=== PATIENT | male | born 1940 | race Caucasian/White ===

== ENCOUNTER → 2018-10-01 | Outpatient (CLI) | payer OTHER ==
[~2018-10-01] MED LIST: ASPI325 PO; CLOP75 PO; IBUP200 PO; OMEP20ER PO; SIMV10 PO; [UNRECOGNIZED DRUG - OTHER] PO
[2018-10-01 19:25] LABS: Bilirubin, Urine Neg (Neg); Blood, Urine Neg (Neg); Glucose Qualitative, Urine Neg (Neg); Ketones, Urine Neg (Neg); Leukocyte Esterase, Urine Neg (Neg); Nitrite, Urine Neg (Neg); Protein, Urine Neg (Neg); Urobilinogen, Urine NORM (Normal); pH, Urine 6.5 (5.0-8.0)
[2018-10-01 19:56] LABS: Appearance, Urine Clear (Clear); Color, Urine Yellow (P-Yellow)
== END ==
LOC: LAB SHORT 18:22 → LAB 18:22
PROVIDERS: Internal Medicine
DX: I12.9 Hypertensive chronic kidney disease with stage 1 through stage 4 chronic kidney disease, or unspecified chronic kidney disease (principal); N18.3 Chronic kidney disease, stage 3 (moderate)
CPT/HCPCS: 81003

== ENCOUNTER 2023-04-21 10:22 | Observation (INO) | payer OTHER ==
[2023-04-21] VITALS (9 sets, daily range): BP systolic 112–134; BP diastolic 74–98
[~2023-04-21] VITALS: Ht 177.8 cm; Wt 64.1 kg
[2023-04-21 11:59] LABS: Mean Corpuscular HGB 31.1 pg (26.0-34.0); Mean Corpuscular HGB Conc 34.1 g/dL (31.5-36.5); Mean Corpuscular Volume 91 fL (80-100); Mean Platelet Volume 12.2 fL (9.1-12.4); Platelet Count 238 K/mm3 (150-400); RDW Coefficient Variation 13.6 % (11.7-14.2); RDW Standard Deviation 45.9 fL (35.1-46.3)
[2023-04-21 12:03] LABS: White Blood Cell Count 12.48 K/mm3 (4.00-11.30)
[2023-04-21 12:10] LABS: Albumin, Blood 2.8 g/dL (3.4-5.0); Albumin/Globulin Ratio 0.9 (0.8-1.8); Bilirubin, Total 0.3 mg/dL (0.1-1.0); Bun/Creatinine Ratio 28.8 (12.0-20.0); Creatinine, Blood 1.04 mg/dL (0.60-1.20); Potassium, Blood 4.5 mmol/L (3.5-5.5); Total Protein, Blood 5.8 g/dL (6.4-8.2)
[2023-04-21 12:43] LABS: BASOPHILS PERCENT MAN 0 % (0-2); EOSINOPHILS PERCENT MAN 0 % (0-6); LYMPHOCYTES ABSOLUTE MAN 0.87 K/mm3 (0.84-5.20); LYMPHOCYTES PERCENT MAN 7 % (21-46); MONOCYTES ABSOLUTE MAN 1.49 K/mm3 (0.16-1.47); MONOCYTES PERCENT MAN 12 % (4-13); SEG NEUTROPHILS PERCENT MAN 81 % (41-73); TOTAL CELLS COUNTED 100
[2023-04-21] MEDS ORDERED: AZIT500 PO (20:54)
[2023-04-21] MEDS ORDERED: PRED20 PO (20:54)
[2023-04-21] MEDS ORDERED: TAMSULOSIN HCL0.4 M1 PO (20:55)
[2023-04-21] MEDS ORDERED: Simvastatin20 MG PO (20:57)
[2023-04-21] MEDS ORDERED: FINA5 PO (20:58)
[2023-04-21] MEDS ORDERED: Prinivil10 MG PO (21:00)
--- NOTE | 2023-04-21 22:12 | NUR ---
ASSUMED PT CARE FORM RN IN ED. PT ABLE TO STAND AND PIVOT TO BED WITH WEAK GAIT. DENIES DIZZIENESS WHEN UP BUT REPORTS FEELING WEAK. A&OX4 BUT SEVERELY [place]. DENIES ANY FEELINGS OF CHEST PAIN OR SOB. DILT GTT INFUSING AT 5 WHEN TRANSFERED WITH HR IN LOW 100'S. HR DECREASED TO 70-80'S. DILT GTT STOPPED AT 2039. WILL MONTOR HR. BP STABLE, SEE RECORDED VITAL SIGNS. O2 SATS > 92% ON RA. LUNG SOUNDS DEMINISHED IN BASES. LOOSE, RATTLING COUGH PRESENT. PT REPORTS HAVING CHRONIC COUGH, "I HAVE A HARD TIME GETTING ANYTHING UP". REPORTS 71 YEAR HX OF SMOKING, NOW ONLY 0.5 PACK/DAY. DISCUSSED IGNITION RISK WITH PT, STATES UNDERSTANDING. DECLINES NICOTINE PATCH AT THIS TIME. REVIEWED HOME MEDICATION LIST WITH JOS OVER THE PHONE WITH PT'S PERMISSION. LEFT RESTING IN BED. DENIES NEEDS AT THIS TIME. ORIENTED TO CALL LIGHT. BED ALARM ON.
[2023-04-22] VITALS (7 sets, daily range): BP systolic 96–140; BP diastolic 58–92
[2023-04-22 04:01] LABS: Hematocrit 41.4 % (37.0-53.0); Hemoglobin 14.5 g/dL (13.5-17.5); Mean Corpuscular HGB 31.4 pg (26.0-34.0); Mean Corpuscular Volume 90 fL (80-100); Mean Platelet Volume 11.9 fL (9.1-12.4); Platelet Count 248 K/mm3 (150-400); RDW Coefficient Variation 13.6 % (11.7-14.2); RDW Standard Deviation 44.9 fL (35.1-46.3); Red Blood Cell Count 4.62 M/mm3 (4.30-5.90); White Blood Cell Count 13.06 K/mm3 (4.00-11.30)
[2023-04-22 04:31] LABS: Bun/Creatinine Ratio 31.1 (12.0-20.0); Calcium, Blood 8.8 mg/dL (8.5-10.1); Creatinine, Blood 0.84 mg/dL (0.60-1.20); Potassium, Blood 4.4 mmol/L (3.5-5.5); Thyroid Stimulating Hormone 1.32 uIU/mL (0.360-4.800)
--- NOTE | 2023-04-22 06:41 | NUR ---
SHIFT SUMMARY: PT HR REMAINED IN 90'S TO LOW 100'S MOST OF NIGHT WITH DILT GTT OFF. BP REMAINED STABLE. HR INCREASING TO 120'S AND SUSTAINING. PT ASYMPTOMATIC. DILT GTT RESTARTED AT 5, HR NOW IN 110'S. PT RETAINING URINE, STANDING AT BEDSIDE AND USING BSC BUT UNABLE TO VOD. BLADDER SCAN > 400 ML. PT REPORTS CHRONIC DIFFICUTLY VOIDING BUT IS ABLE TO ASSIST VOIDING BY AMBULATING. PT UNABLE TO TOLERATE ANY DISTANCE AT THIS TIME. 1&O CATH X 1, CLEAR, TEA COLORED URINE RECEVED BACK. WILL CONTINUE TO MONITOR. CALL LIGHT IN REACH. BED IN LOW POSITION WITH ALARM ON.
--- NOTE | 2023-04-22 08:24 | NUR ---
AM NOTE: PATIENT ALERT AND ORIENTED. HARD OF HEARING. 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 NUMBNESS/TINGLING TO LEFT HAND, PREVIOUS STROKE, PATIENT REPORTS IN 2010. OVERALL WEAK. ONE PERSON SBA. IRRITABLE THIS AM STATING "THE DOCTORS HAVE NOT FIXED ANYTHING, I AM THE SAME YESTERDAY, I AM GOING HOME TODAY NO MATTER WHAT". THIS RN EDUCATED ABOUT AFIB AND CARDIZEM GTT. PATIENT CONTINUES TO STATE "NO MATTER WHAT I AM GOING HOME". PATIENT CALLED PAWEL THIS AM, PAWEL TO BE COMING IN. ON ROOM AIR, DENIES SOB. EVEN AND UNLABORED RESPIRATIONS. PATIENT STATES HE WAS TAKING A "Z-PACK, AND PREDNISONE" AT HOME AND THAT HIS PAWEL IS BRINGING THIS IN. TELE SHOWING AFIB WITH HR 100-120'S. CARDIZEM GTT ON AT 5. BP STABLE. PPP. DENIES CHEST PAIN/PRESSURE/PALPITATIONS. NONSYMPTOMATIC WITH AFIB. DENIES ABDOMINAL PAIN/NAUSEA. BOWEL TONES PRESENT. EATING WNL. PATIENT REPORTS RETENTION AT HOME, MONITORING URINE OUTPUT. ATTENDS IN PLACE. THIS RN EDUCATED BUSH HOG OPERATOR LIGHT. PATIENT VERBALIZES HE WILL CALL FOR ASSISTANCE IN GETTING OUT OF BED. BED IN LOW LOCKED POSITION. PATIENT DENIES NEEDS AT THIS TIME.
--- NOTE | 2023-04-22 09:50 | NUR ---
CONVERSION TO SINUS RHYTHM WITH HR 70'S AT 0925, CONFIRMED WITH RADIOLOGY TRANSCRIPTIONIST. DR. MARTINEZ IN ROOM AT TIME AND AWARE. PLAN FOR ECHO TO BE READ AND POSSIBLE DISCHARGE. BLOOD THINNERS AND METOPROLOL DISCUSSED. AT BEDSIDE FOR PROVIDER VISIT.
[2023-04-22] MEDS ORDERED: METO25 PO (11:40)
[2023-04-22] MEDS ORDERED: ELIQUIS5 M2 PO (11:44)
--- NOTE | 2023-04-22 13:42 | NUR ---
DISCHARGE: NO ACUTE CHANGES, PATIENT REMAINS IN SR WITH HR 60-70'S. BP STABLE. ECHO COMPLETED AND READ. DISCHARGE INSTRUCTIONS REVIEWED WITH PATIENT AND . COPY PROVIDED FOR DAUGHTER JAREN. THIS RN DISCUSSED FOLLOW UP APPOINTMENT AND STOPPING PLAVIX AND LISINOPRIL AND STARTING METOPROLOL AND ELIQUIS. THIS RN DISCUSSED VITAL SIGNS WITH TAKING METORPOLOL. MEDICATIONS FAXED TO [facility]. IV REMOVED WNL. PATIENT LEFT UNIT VIA WHEELCHAIR WITH ALL PERSONAL BELONGINGS.
== END 2023-04-22 12:00 | disposition home or self-care (01) ==
LOC: ER 10:22 → ERHOLD 10:23 → PCU 10:23
PROVIDERS: Student in an Organized Health Care Education/Training Program; ADMIT Internal Medicine
DX: I48.91 Unspecified atrial fibrillation (principal); N40.0 Benign prostatic hyperplasia without lower urinary tract symptoms; J44.9 Chronic obstructive pulmonary disease, unspecified; U07.1 COVID-19; E78.5 Hyperlipidemia, unspecified
CPT/HCPCS: 36415; 51701; 71045; 80048; 80053; 83735; 83880; 84443; 84484; 85025; 85027; 93005; 93010; 93306; 96361; 96365; 96366; 96368; 96372; 96375; 99285-25; A9270; G0378; J1650; J2765; J3475; J7030

== ENCOUNTER → 2023-07-04 | Outpatient (CLI) | payer OTHER ==
[~2023-07-04] MED LIST changes: +AZIT500 PO; +ELIQUIS5 M2 PO; +FINA5 PO; +METO25 PO; +PRED20 PO; +Prinivil10 MG PO; +Simvastatin20 MG PO; +TAMSULOSIN HCL0.4 M1 PO
[2023-07-04 17:29] LABS: International Normalized Ratio 1.09; Prothrombin Time Results 11.4 Sec (9.7-11.5)
== END ==
LOC: LAB SHORT 16:31 → LAB 16:31
PROVIDERS: Nurse Practitioner Family
DX: I48.91 Unspecified atrial fibrillation (principal)
CPT/HCPCS: 85610

== ENCOUNTER 2025-03-13 17:57 | Emergency (ER) | payer OTHER ==
[~2025-03-13] VITALS: Ht 175.3 cm; Wt 72.6 kg
[~2025-03-13 17:57] MED LIST changes: +DOCU100 PO; +LISI20 PO; +MIRALAX17 GM PO; +OXYC5 PO; +WARF1
[2025-03-13 18:21] LABS: BASOPHILS ABSOLUTE AUTO 0.05 K/mm3 (0.00-0.23); BASOPHILS PERCENT AUTO 1 % (0-2); EOSINOPHILS ABSOLUTE AUTO 0.14 K/mm3 (0.00-0.68); EOSINOPHILS PERCENT AUTO 1 % (0-6); Hematocrit 39.8 % (37.0-53.0); Hemoglobin 13.7 g/dL (13.5-17.5); IMMATURE GRAN ABSOLUTE AUTO 0.02 K/mm3 (0.00-0.10); IMMATURE GRAN PERCENT AUTO 0 % (0-1); LYMPHOCYTES ABSOLUTE AUTO 2.34 K/mm3 (0.84-5.20); LYMPHOCYTES PERCENT AUTO 24 % (21-46); MONOCYTES ABSOLUTE AUTO 1.01 K/mm3 (0.16-1.47); MONOCYTES PERCENT AUTO 10 % (4-13); Mean Corpuscular HGB Conc 34.4 g/dL (31.5-36.5); Mean Corpuscular Volume 89 fL (80-100); NEUTROPHILS ABSOLUTE AUTO 6.29 K/mm3 (1.96-9.15); NEUTROPHILS PERCENT AUTO 64 % (41-73); NRBC ABSOLUTE 0.00 K/mm3 (0.00-0.02); NRBC Auto 0.0 /100 WBC (0.0-0.2); Platelet Count 216 K/mm3 (150-400); RDW Coefficient Variation 14.7 % (11.7-14.2); RDW Standard Deviation 48.3 fL (35.1-46.3)
[2025-03-13 18:35] LABS: Alanine Aminotransfer (ALT/SGP 28.0 U/L (12-78); Albumin, Blood 3.5 g/dL (3.4-5.0); Albumin/Globulin Ratio 1.1 (0.8-1.8); Anion Gap 9.0 mmol/L (3-11); Aspartate Aminotrans (AST/SGOT 37.0 U/L (12-37); Bilirubin, Total 0.4 mg/dL (0.1-1.0); Blood Urea Nitrogen 21.0 mg/dL (8-24); CO2, Blood 25.0 mmol/L (21-32); Calcium, Blood 9.4 mg/dL (8.5-10.1); Chloride, Blood 109.0 mmol/L (98-108); Creatinine, Blood 0.88 mg/dL (0.60-1.20); Globulin, Blood 3.2 g/dL (2.2-4.0); Glucose, Blood 94.0 mg/dL (70-99); Potassium, Blood 4.6 mmol/L (3.5-5.5); Sodium, Blood 138.0 mmol/L (136-145); Total Protein, Blood 6.7 g/dL (6.4-8.2)
[2025-03-13 23:32] LABS: Influenza A, PCR NEGATIVE (NEGATIVE); Influenza B, PCR NEGATIVE (NEGATIVE); Resp Syncytial Virus, PCR NEGATIVE (NEGATIVE); SARS-Cov-2 (COVID-19) PCR, MMC NEGATIVE (NEGATIVE)
[2025-03-13] MEDS ORDERED: NS 500 ML IV SCH (23:45)
[2025-03-14] MEDS ORDERED: Etomidate 2MG / ML 10ML Vial IV ONE (00:40)
[2025-03-14 08:05] VITALS: BP 129/100
[2025-03-14 09:38] LABS: Source, Urine Clean Catch
[2025-03-14 09:44] LABS: Bilirubin, Urine Neg (Neg); Color, Urine Yellow (P-Yellow); Glucose Qualitative, Urine Neg (Neg); Ketones, Urine Neg (Neg); Leukocyte Esterase, Urine Neg (Neg); Protein, Urine Neg (Neg); Specific Gravity, Urine 1.015 (1.003-1.022); Urobilinogen, Urine NORM (Normal)
== END 2025-03-14 17:14 | disposition home or self-care (01) ==
LOC: ER 17:57
PROVIDERS: Emergency Medicine
DX: R53.1 Weakness (principal); R53.81 Other malaise; E78.5 Hyperlipidemia, unspecified; Z79.82 Long term (current) use of aspirin; F17.200 Nicotine dependence, unspecified, uncomplicated
CPT/HCPCS: 70450; 71045; 80053; 81003; 83880; 85025; 87637; 93005; 93010; 97161; 97530; 99285-25; J7030

== ENCOUNTER 2025-05-02 22:08 | Inpatient (IN) | payer OTHER ==
[~2025-05-02] VITALS: Ht 177.8 cm; Wt 80.2 kg
[2025-05-02] MEDS ORDERED: FentaNYL Citrate 50 MCG/ML 2 ML Injection IV PRN (22:40)
[2025-05-02] MEDS ORDERED: FentaNYL Citrate 50 MCG/ML 2 ML Injection IV ONE (23:40)
[2025-05-02] MEDS ORDERED: Ketamine HCL 10 MG in NS 100 ML IV ONE (23:40)
[2025-05-03] MEDS ORDERED: NS 1,000 ML IV SCH (01:45)
[2025-05-03 01:48] LABS: BASOPHILS ABSOLUTE AUTO 0.04 K/mm3 (0.00-0.23); BASOPHILS PERCENT AUTO 0 % (0-2); EOSINOPHILS ABSOLUTE AUTO 0.17 K/mm3 (0.00-0.68); EOSINOPHILS PERCENT AUTO 2 % (0-6); Hematocrit 37.9 % (37.0-53.0); Hemoglobin 12.2 g/dL (13.5-17.5); IMMATURE GRAN ABSOLUTE AUTO 0.12 K/mm3 (0.00-0.10); IMMATURE GRAN PERCENT AUTO 1 % (0-1); LYMPHOCYTES ABSOLUTE AUTO 2.02 K/mm3 (0.84-5.20); LYMPHOCYTES PERCENT AUTO 21 % (21-46); MONOCYTES ABSOLUTE AUTO 0.77 K/mm3 (0.16-1.47); MONOCYTES PERCENT AUTO 8 % (4-13); Mean Corpuscular HGB Conc 32.2 g/dL (31.5-36.5); Mean Corpuscular Volume 95 fL (80-100); NEUTROPHILS ABSOLUTE AUTO 6.43 K/mm3 (1.96-9.15); NEUTROPHILS PERCENT AUTO 67 % (41-73); NRBC ABSOLUTE 0.00 K/mm3 (0.00-0.02); NRBC Auto 0.0 /100 WBC (0.0-0.2); Platelet Count 219 K/mm3 (150-400); RDW Coefficient Variation 14.5 % (11.7-14.2); RDW Standard Deviation 50.7 fL (35.1-46.3)
[2025-05-03 01:52] LABS: Alanine Aminotransfer (ALT/SGP 25.0 U/L (12-78); Albumin, Blood 3.0 g/dL (3.4-5.0); Albumin/Globulin Ratio 1.0 (0.8-1.8); Anion Gap 8.0 mmol/L (3-11); Aspartate Aminotrans (AST/SGOT 22.0 U/L (12-37); Bilirubin, Total 0.4 mg/dL (0.1-1.0); Blood Urea Nitrogen 23.0 mg/dL (8-24); CO2, Blood 27.0 mmol/L (21-32); Calcium, Blood 8.9 mg/dL (8.5-10.1); Chloride, Blood 108.0 mmol/L (98-108); Creatinine, Blood 0.86 mg/dL (0.60-1.20); Globulin, Blood 2.9 g/dL (2.2-4.0); Glucose, Blood 113.0 mg/dL (70-99); Potassium, Blood 4.2 mmol/L (3.5-5.5); Sodium, Blood 139.0 mmol/L (136-145); Total Protein, Blood 5.9 g/dL (6.4-8.2)
[2025-05-03] MEDS ORDERED: Magnesium Hydroxide Conc 10 ML UDC PO PRN (02:00)
[2025-05-03 02:54] LABS: Prothrombin Time Results 65.8 Sec (9.7-11.5)
[2025-05-03 04:49] VITALS: BP 160/84
[2025-05-03] MEDS ORDERED: NS 250 ML IV PRN (05:55)
[2025-05-03] MEDS ORDERED: Ipratropium/Albuterol SulF 2.5-0.5MG/3 ML Amp INH PRN (06:10)
[2025-05-03 06:17] VITALS: BP 160/91
[2025-05-03 06:30] VITALS: BP 131/74
[2025-05-03 07:12] VITALS: BP 132/76
[2025-05-03] MEDS ORDERED: Polyethylene Glycol 3350 17 gm PO PRN (07:40)
[2025-05-03 09:47] LABS: Prothrombin Time Results 20.0 Sec (9.7-11.5)
[2025-05-03] MEDS ORDERED: HYDROmorphone HCl/Pf 1MG SYR IV PRN (12:20)
[2025-05-03 16:14] VITALS: BP 121/89
--- NOTE | 2025-05-03 16:58 | NUR ---
SHIFT SUMMARY PT RESTING QUIETLY AT START OF SHIFT. WOKE EASILY FOR CARE. PLEASANT AND CO-OP. PT NPO AT START OF SHIFT. DR EDGE AND DR BURTON BOTH IN TO SEE PT TO DISCUSS PLAN OF CARE. PT GIVEN VIT K AND 2 UNITS OF FFP ON NOC SHIFT FOR INR 6.0 UPON ADMISSION. NEXT INR TAKEN AT 0900; DR BURTON THEN NOTIFIED OF RESULTS. PT TO HAVE SX TOMORROW, DIET ORDERED AND MEDS GIVEN PER EMAR. IN EARLY TO SEE PT, JUST AFTER DR BURTON LEFT. MED REC UPDATED PER ORDERS WHEN BROUGHT IN HOME MED LIST AND MEDICATION BOTTLES. REPORTED PT TAKING COUMADIN FOR AFIB, PER PT'S PCP. PER PT AND , HOME DOSE OF COUMADIN IS 6 MG - AND 9 MG MON & MONDAY. BLE SWELLING, WITH R FOOT MORE SWOLLEN; DR BURTON REQUESTED SCD'S TO BOTH CALF'S. LUNGS T/O COARSE WITH SCATTERED EXP WHEEZES; PER PT AND THIS IS PT'S BASELINE. DR EDGE ORDERED FLUTTER VALVE AND INS; GIVEN PER ORDER. PT REPORTS USING THEM AT HOME. PT'S DAUGHTER IN TO VISIT AND CK ON PT THIS AM WELL. FAMILY THEN REPOSITIONED PT, CAUSING PAIN TO R HIP FX. PT THEN MEDICATED PER EMAR WITH OXYCODONE. DAUGHTER WANTING PT TO HAVE IV PAIN MEDICATION WELL; NO IV MED AVAILABLE AT THAT TIME. DR EDGE NOTIFIED AND NEW ORDERS PLACED. PT HAS BEEN DOING BETTER THIS AFTERNOON, RECOVERING FROM FAMILY REPOSITONING. PT REQUESTED BEDPAN THIS AM FOR BM; VERY LRG FORMED STOOL. PT REPORTS TROUBLE WITH CONSTIPATION. BOWEL CARE GIVEN PER EMAR. MALE PUREWICK IN PLACE FOR INCONTINECE; PT TOLERATING WELL. PT REPORTED CHOKING REFLEX HX AND REQUESTING SOFT BITE SIZE DIET; ORDERED PER REQUEST. PT SITTING UP EATING DINNER AT THIS TIME. PT TO BE NPO AT MN FOR SX IN AM. AT BS. DENIES FURTHER NEEDS AT THIS TIME. CALL LT IN REACH.
[2025-05-03 20:05] VITALS: BP 114/53
[2025-05-03] MEDS ORDERED: Docusate Sodium/Senna 1 Tab PO SCH (21:00)
[2025-05-03] MEDS ORDERED: CeFAZolin Sodium 2,000 MG in NS 100 ML IV SCH (22:05)
[2025-05-03 22:40] LABS: Prothrombin Time Results 15.1 Sec (9.7-11.5)
[2025-05-04] VITALS (20 sets, daily range): BP systolic 101–159; BP diastolic 53–84
--- NOTE | 2025-05-04 05:24 | NUR ---
NOC SUMMARY- PT PAIN MANAGED WELL. PT NPO SINCE MN. PT VOIDING VIA PUREWICK. PT REMAINS ON O2 @ 3LPM. SONIYA PT. CALL LIGHT IN REACH.
[2025-05-04 06:24] LABS: Hematocrit 38.0 % (37.0-53.0); Hemoglobin 12.5 g/dL (13.5-17.5); Mean Corpuscular HGB Conc 32.9 g/dL (31.5-36.5); Mean Corpuscular Volume 94 fL (80-100); NRBC ABSOLUTE 0.00 K/mm3 (0.00-0.02); NRBC Auto 0.0 /100 WBC (0.0-0.2); Platelet Count 201 K/mm3 (150-400); RDW Coefficient Variation 14.6 % (11.7-14.2); RDW Standard Deviation 50.5 fL (35.1-46.3)
[2025-05-04 06:40] LABS: Albumin, Blood 3.0 g/dL (3.4-5.0); Anion Gap 9 mmol/L (3-11); Blood Urea Nitrogen 21 mg/dL (8-24); CO2, Blood 26 mmol/L (21-32); Calcium, Blood 8.9 mg/dL (8.5-10.1); Chloride, Blood 106 mmol/L (98-108); Creatinine, Blood 0.85 mg/dL (0.60-1.20); Glucose, Blood 107 mg/dL (70-99); Magnesium, Blood 1.8 mg/dL (1.6-2.4); Phosphorus, Blood 2.3 mg/dL (2.5-4.9); Potassium, Blood 4.2 mmol/L (3.5-5.5); Sodium, Blood 137 mmol/L (136-145)
[2025-05-04 06:47] LABS: Prothrombin Time Results 13.5 Sec (9.7-11.5)
--- NOTE | 2025-05-04 08:03 | NUR ---
PT TO OR. NOTIFIED PT'S SPOUSE.
[2025-05-04] MEDS ORDERED: Bupivacaine 0.5% W/EPI 1:200000 SDV 30 ML Vial ONE (08:17)
[2025-05-04] MEDS ORDERED: Ipratropium/Albuterol SulF 2.5-0.5MG/3 ML Amp ONE (08:30)
[2025-05-04] MEDS ORDERED: Etomidate 2MG / ML 10ML Vial ONE (08:46)
[2025-05-04] MEDS ORDERED: FentaNYL Citrate 50 MCG/ML 2 ML Injection ONE ×2 (08:47→11:09)
[2025-05-04] MEDS ORDERED: Rocuronium Bromide 10 MG/ML 5ML Injection IV ONE (09:06)
[2025-05-04] MEDS ORDERED: Dexamethasone Sod Phos 10 MG/ML 1ML VIAL ONE (09:06)
[2025-05-04] MEDS ORDERED: Ondansetron HCl 2 MG / ML 2ML Vial ONE (09:06)
[2025-05-04] MEDS ORDERED: CeFAZolin Sodium 1000 mg Vial ONE (09:06)
[2025-05-04] MEDS ORDERED: Ipratropium Bromide INH 0.02% 0.5 mg/2.5ML Vial INH ONE (09:20)
[2025-05-04] MEDS ORDERED: Ondansetron HCl 2 MG / ML 2ML Vial IV PRN (09:25)
[2025-05-04] MEDS ORDERED: FentaNYL Citrate 50 MCG/ML 2 ML Injection IV PRN ×2 (09:25)
[2025-05-04] MEDS ORDERED: HYDROmorphone HCl/Pf 1MG SYR IV PRN ×2 (09:25)
[2025-05-04] MEDS ORDERED: Albuterol 2.5 MG/3 ML VIAL INH PRN (09:25)
[2025-05-04] MEDS ORDERED: Albuterol HFA200 ACT/6.7 GM INH ONE (10:21)
[2025-05-04] MEDS ORDERED: Sugammadex Sodium 200 MG/2ML SDV (100 MG/ML) ONE (10:27)
[2025-05-04] MEDS ORDERED: Albuterol 2.5 MG/3 ML VIAL ONE (10:56)
[2025-05-04] MEDS ORDERED: HYDROmorphone HCl/Pf 1MG SYR ONE (11:31)
--- NOTE | 2025-05-04 12:08 | NUR ---
PT ARRIVED BACK TO 214 FROM PACU. IN BED. DRESSING TO R HIP CDI. VSS. 02 98% ON 4L NC. PLACED CALL LIGHT IN REACH. PT CONFUSED, [place]. FAMILY BEDSIDE.
--- NOTE | 2025-05-04 13:36 | NUR ---
DR EDGE IN TO SEE PT.
--- NOTE | 2025-05-04 17:04 | NUR ---
SUMMARY PT POD 0 FOR R SAMEER HIP. DRESSING TO R HIP CDI. PT REPORTS MINIMAL PAIN. SLEPT T/O MOST OF AFTERNOON. VOIDED POST SURGERY. PT'S LUNGS SOUND COARSE T/O. ON 5L NC. OXIMETRY IN USE. PT HAS NOT BEEN OOB YET. CALL LIGHT IN REACH, BED ALARM ON.
[2025-05-05 03:24] VITALS: BP 124/62
--- NOTE | 2025-05-05 05:46 | NUR ---
SHIFT SUMMARY NOC. POD 1 FOR RIGHT SAMEER HIP. TELFA DRESSING IS C/D/I. PT REPORTS PAIN IS MILD, TOLERABLE, AND DECLINES PAIN MEDICATION WHEN OFFERED. PT VOIDING URINE VIA ATTENDS. PT MAKES NEEDS KNOWN, CALL LIGHT IN REACH.
[2025-05-05 06:51] VITALS: BP 136/72
[2025-05-05 15:41] VITALS: BP 128/78
--- NOTE | 2025-05-05 17:43 | NUR ---
SUMMARY ASSUMED CARE OF PT @0700. VSS. FLUCTUATUING BETWEEN 5 - 6LNC. CONTINUOUS SPO2 IN PLACE, GENERALLY READS >88% BUT PATIENT REMOVES OXYGEN OFTEN OR CONTINUOUS SPO2 MONITORING CORD - STATES "HE'S BEEN DOING THIS A LONG TIME AND KLNOWS WHEN HE NEEDS OXYGEN". EDUCATION BEING PROVIDED TO PT. PT AXO4 TUOLUMNE. TELFA/TEGADERM DRESSING CDI TO R HIP. WORKED WITH PHYSICAL THERAPY TODAY AND STOOD UP TO CHAIR, WILL BE GETTING PT BACK TO BED - 2 MAX ASSIST. HOME MED RECONCILIAITION COMPLETED- ADDED PT'S BPH REGIMEN AND DIZZINES PRN MEDS- PT HAS VOIDED TODAY WITH INCONTINENCE. PLAN FOR [place] [facility] PER CARE MANAGEMENT - PT AGREEABLE - FAMILY IN AND OUT OF ROOM TODAY. PT USING CALL LIGHT APPROPRIATELY.
[2025-05-05 19:31] VITALS: BP 102/65
[2025-05-05 22:28] VITALS: BP 133/74
[2025-05-06 04:37] VITALS: BP 145/77
--- NOTE | 2025-05-06 06:20 | NUR ---
SHIFT SUMMARY NOC. PT POD 2 FOR RIGHT SAMEER HIP. TELFA DRESSING TO HIP IS C/D/I. PT DENIES PAIN AND DECLINES MEDICATION THIS SHIFT WHEN OFFERED (RECEIVING TYLENOL DURING DAY SHIFT). PT VOIDING URINE VIA PUREWICK AND ATTENDS. TOLERATING PO. PT HAS NOTICEABLE NON PRODUCTIVE COUGH, ENCOURAGING PULMONARY TOILETING, PT HAS CONT BIOX IN PLACE AND REMAINS O2 DEPENDENT. PT MAKES NEEDS KNOWN.
[2025-05-06 07:03] VITALS: BP 166/81
--- NOTE | 2025-05-06 14:30 | NUR ---
Spiritual Care Visit. Pt. is awake and sitting up in a chair when he welcomed my visit. Pt. is pleasant, but does display evidence of being [place]. Facilitate a life review and listen with interst and emapthy. Pt. displays evidence of being quite motivated to get stronger and verbalized his desire to go to rehab. Considered matters of sean and belief. Prayed with the Pt. Pt. verbalized gratitude for the spiritual care visit.
[2025-05-06 15:30] VITALS: BP 103/71
--- NOTE | 2025-05-06 17:47 | NUR ---
SUMMARY NO ACUTE CHANGES TODAY. VSS. AXO4. ASSUMED CARE OF PT @0700. STOOD PT UP, COMPLETED ROM MULTIPLE TIMES THIS SHIFT- PT TEARFUL AT TIMES DUE TO PT'S BELIEF HE ISN'T PROGRESSING - EDUCATIN PROVIDED. FAMILY AT BEDSIDE OFF AND ON T/O SHIFT. PT HAS SPENT MAJORITY OF SHIFT IN CHAIR. RANGING FROM 4-6LNC ACCORDING TO CONTINUOUS BIOX LEVELS. MEPILEX IN [place] T[place]ACR[place]. FOAM HEEL PROTECTORS TO HEELS. PAIN BEING TREATED WITH TYLENOL. PT ANXIOUS TO GO HOME. PLAN FOR [facility].
[2025-05-06 19:49] VITALS: BP 115/69
[2025-05-06 21:18] VITALS: BP 154/78
[2025-05-07 02:32] VITALS: BP 134/69
[2025-05-07 02:33] VITALS: BP 134/69
--- NOTE | 2025-05-07 04:19 | NUR ---
SHIFT SUMMARY NOC. PT POD 3 FOR RIGHT SAMEER HIP. TELFA DRESSING ON RIGHT HIP IS C/D/I WITHOUT DRAINAGE. PT IS DENYING PAIN AND DECLINED SCHEDULED 0000 TYLENOL. PT VOIDING URINE VIA URINAL WITH ASSIST AND ATTENDS INCONT. PT TOLERATING PO INTAKE, PT'S COUGH BECOMING PRODUCTIVE WITH SMALL AMOUNT OF THICK MUCUS. CONTINUING TO ENCOURAGE PULMONARY TOILETING, AND HOB 90 DEGREES FOR DRINKING AND TAKING PILLS. CONT BIOX IN PLACE, NO DESAT EVENTS PT ON 2L VIA N/C. PINK FOAM HEEL PROTECTORS IN PLACE. Q2 REPOSITIONING. PT MAKES NEEDS KNOWN, CALL LIGHT IN REACH.
[2025-05-07 07:02] VITALS: BP 167/73
--- NOTE | 2025-05-07 12:13 | NUR ---
ATT[facility] TO GIVE RE[facility]. TRANSFERRED TO NURSING STATION BY MANNEQUIN MOLD MAKER, BUT NO REPLY FOR FIVE MINUTES AFTER THAT. WILL REATTEMPT LATER.
--- NOTE | 2025-05-07 12:37 | NUR ---
REPORT GIVEN TO EVARISTO AT [facility].
== END 2025-05-07 12:34 | DRG 522 ==
LOC: ER 22:08 → ERHOLD 05-03 01:34 → SURS 05-03 01:34
PROVIDERS: Emergency Medicine; Internal Medicine; Orthopaedic Surgery; Student in an Organized Health Care Education/Training Program; ADMIT Internal Medicine
PROC: 3E03329 Introduction of Other Anti-infective into Peripheral Vein, Percutaneous Approach (ICD-10-PCS; 2025-05-03)
PROC: 0SR9019 Replacement of Right Hip Joint with Metal Synthetic Substitute, Cemented, Open Approach (ICD-10-PCS; principal; 2025-05-04 08:00)
DX: S72.011A Unspecified intracapsular fracture of right femur, initial encounter for closed fracture (principal); I48.20 Chronic atrial fibrillation, unspecified; M54.50 Low back pain, unspecified; G89.29 Other chronic pain; E78.5 Hyperlipidemia, unspecified; I45.10 Unspecified right bundle-branch block; I44.4 Left anterior fascicular block; E86.0 Dehydration; F17.210 Nicotine dependence, cigarettes, uncomplicated; R54 Age-related physical debility; N28.9 Disorder of kidney and ureter, unspecified; N40.0 Benign prostatic hyperplasia without lower urinary tract symptoms; Z66 Do not resuscitate; Z96.611 Presence of right artificial shoulder joint; Z87.81 Personal history of (healed) traumatic fracture; Z98.1 Arthrodesis status; Z79.01 Long term (current) use of anticoagulants; Z79.899 Other long term (current) drug therapy; Z88.6 Allergy status to analgesic agent; W01.0XXA Fall on same level from slipping, tripping and stumbling without subsequent striking against object, initial encounter; Y92.009 Unspecified place in unspecified non-institutional (private) residence as the place of occurrence of the external cause
CPT/HCPCS: 36415; 36430; 70450; 71045; 72125; 73501; 73502; 80053; 80069; 83735; 83880; 85025; 85027; 85610; 85730; 86900; 86901; 93005; 93010; 94640; 94664; 94760; 94762; 96374; 96375; 96376; 97110; 97162; 97165; 97530; 97535; 99285-25; A9270; C1713; C1776; J0690; J1100; J1171; J2405; J3010; J3430; J7030; P9059

== ENCOUNTER → 2025-05-29 | Outpatient (CLI) | payer OTHER ==
[2025-05-29 13:27] LABS: Prothrombin Time Results 20.0 Sec (9.7-11.5)
== END ==
LOC: LAB SHORT 12:10 → LAB 12:10
PROVIDERS: Nurse Practitioner Family
DX: I48.91 Unspecified atrial fibrillation (principal); D68.69 Other thrombophilia
CPT/HCPCS: 85610

== ENCOUNTER 2025-06-06 23:17 | Observation (INO) | payer OTHER ==
[~2025-06-06] VITALS: Ht 177.8 cm; Wt 73.9 kg
[2025-06-07] MEDS ORDERED: Morphine Sulfate 4 MG/1 ML Injection IV ONE (00:35)
[2025-06-07] MEDS ORDERED: FLU VACC TS2025(65UP)/MF59C/PF 45 MCG/0.5 ML SYRINGE IM SCH (04:25)
[2025-06-07] MEDS ORDERED: FentaNYL Citrate 50 MCG/ML 2 ML Injection IV PRN (06:20)
--- NOTE | 2025-06-07 07:13 | NUR ---
SHIFT SUMMARY CHRISTOPHER WAS A/OX4 ON ADMIT. LATE ADMIT. MED REC NOT COMPLETE, HAS MED LIST. PT SETTLED, ADMIT ASSESMENT COMPLETE. SENSATION / CIRCULATION TO AFFECTED LEG INTACT NO ACUTE EVENTS AFTER ADMIT. REPORT GIVEN TO DAY SHIFT.
[2025-06-07 07:31] VITALS: BP 120/57
--- NOTE | 2025-06-07 09:18 | NUR ---
AM NOTE: PATIENT ALERT AND ORIENTED. HARD OF HEARING. DENIES PAIN AT THIS TIME. MOVING ALL EXTREMITIES. RIGHT LEG PAINFUL WITH MOVEMENT AND SUPPORTED WITH PILLOWS AT THIS TIME. SURGICAL STATUS NO TELE. HR 50-60'S. DENIES CHEST PAIN/PRESSURE/PALPITATIONS. IV SALINE LOCKED. RIGHT FOOT EDEMA NOTED. ON ROOM AIR. HISTORY OF COPD BUT DENIES OXYGEN USE AT HOME. SATING 94% ON ROOM AIR. LUNG SOUNDS COARSE WITH DIMINISHED BASES. BOWEL TONES PRESENT. NPO AT THIS TIME PENDING ORTHO CONSULT. DENIES ISSUES VOIDING. USING URINAL IND. SKIN PALE WITH SCATTERED BRUISING. COMPLAINS OF LEFT HEEL PAIN. LEFT HEEL RED BUT BLANCHABLE, NO OPEN WOUNDS. LEFT HEEL ELEVATED. CALL LIGHT IN REACH. CALL PLACED TO PAWEL TO UPDATE HOME MED, MESSAGE LEFT.
--- NOTE | 2025-06-07 09:33 | NUR ---
PAWEL AT BEDSIDE. PLAN FOR PAWEL TO CALL ONCE HOME SO WE CAN COMPLETE MED REC.
--- NOTE | 2025-06-07 11:32 | NUR ---
DR. BUTLER TO BEDSIDE, PAWEL AND THIS RN PRESENT. PLAN FOR PHYSICAL THERAPY AND PATIENT ABLE TO EAT. NO SURGERY AT THIS TIME. PHYSICAL THERAPY UPDATED AND IN ROOM AT THIS TIME.
[2025-06-07] MEDS ORDERED: DRAMAMINE25 M3 PO (11:58)
[2025-06-07] MEDS ORDERED: METO50ER PO (12:00)
[2025-06-07] MEDS ORDERED: HYDROcodone 5-APAP 325 TAB PO PRN (13:20)
--- NOTE | 2025-06-07 13:21 | NUR ---
DR. MORROW TO BEDSIDE, THIS RN PRESENT FOR MD ROUNDS. ORDERS FOR PHARMACY WARFARIN CONSULT AND HYDROCODONE PO 5/325 1 TAB Q4 PRN FOR PAIN. ORDERS IN PLACE.
[2025-06-07 14:50] LABS: Prothrombin Time Results 42.1 Sec (9.7-11.5)
[2025-06-07 15:10] VITALS: BP 141/73
--- NOTE | 2025-06-07 17:53 | NUR ---
SHIFT SUMMARY: PATIENT REMAINS ALERT AND ORIENTED. MOVING ALL EXTREMITIES WITH PAIN TO RIGHT HIP. MEDICATED PER EMAR. PHYSICAL THERAPY THIS AFTERNOON. Q2 TURNING AND NEEDED. NO TELE. SBP 120-140'S. DENIES CHEST PAIN/PRESSURE. ON ROOM AIR SATING 94% AND ABOVE. TOLERATING PO DIET. DENIES ABDOMINAL PAIN/NAUSEA. USING URINAL TO VOID. CALL LIGHT IN REACH. EATING DINNER AT THIS TIME AND DENIES NEEDS.
[2025-06-07 19:07] VITALS: BP 137/72
[2025-06-08 03:53] LABS: Prothrombin Time Results 46.2 Sec (9.7-11.5)
[2025-06-08] MEDS ORDERED: NS 500 ML IV SCH (04:40)
--- NOTE | 2025-06-08 04:45 | NUR ---
NOC SUMMARY- PT HAS BEEN RESTING COMFORTABLY. PT REPOSITIONED TOLERATED. PT VOIDING AND TOLERATING PO. THIS AM PT INR CAME BACK CRITICAL. DR WYATT NOTIFIED AND ORDERED 1 UNIT OF FFP FOR PT. NO OTHER ISSUES NOTED. CALL LIGHT IN REACH.
[2025-06-08 04:59] VITALS: BP 128/50
--- NOTE | 2025-06-08 06:31 | NUR ---
UPDATE- PT REFUSED TO RECIEVE FFP. DR WYATT SPOKE WITH PT. PT REFUSED TO SIGN CONSENT AND REFUSED THE FFP. FFP RETURNED TO [facility].
[2025-06-08 07:30] VITALS: BP 153/74
[2025-06-08] MEDS ORDERED: Polyethylene Glycol 3350 17 gm PO SCH (09:00)
[2025-06-08 13:47] LABS: BASOPHILS ABSOLUTE AUTO 0.06 K/mm3 (0.00-0.23); BASOPHILS PERCENT AUTO 1 % (0-2); EOSINOPHILS ABSOLUTE AUTO 0.08 K/mm3 (0.00-0.68); EOSINOPHILS PERCENT AUTO 1 % (0-6); Hematocrit 35.9 % (37.0-53.0); Hemoglobin 11.4 g/dL (13.5-17.5); IMMATURE GRAN ABSOLUTE AUTO 0.04 K/mm3 (0.00-0.10); IMMATURE GRAN PERCENT AUTO 0 % (0-1); LYMPHOCYTES ABSOLUTE AUTO 1.55 K/mm3 (0.84-5.20); LYMPHOCYTES PERCENT AUTO 12 % (21-46); MONOCYTES ABSOLUTE AUTO 1.11 K/mm3 (0.16-1.47); MONOCYTES PERCENT AUTO 9 % (4-13); Mean Corpuscular HGB Conc 31.8 g/dL (31.5-36.5); Mean Corpuscular Volume 95 fL (80-100); NEUTROPHILS ABSOLUTE AUTO 10.14 K/mm3 (1.96-9.15); NEUTROPHILS PERCENT AUTO 78 % (41-73); NRBC ABSOLUTE 0.00 K/mm3 (0.00-0.02); NRBC Auto 0.0 /100 WBC (0.0-0.2); Platelet Count 200 K/mm3 (150-400); RDW Coefficient Variation 14.0 % (11.7-14.2); RDW Standard Deviation 49.1 fL (35.1-46.3)
[2025-06-08 14:07] LABS: Prothrombin Time Results 39.2 Sec (9.7-11.5)
[2025-06-08 14:11] LABS: Anion Gap 7.0 mmol/L (3-11); Blood Urea Nitrogen 16.0 mg/dL (8-24); CO2, Blood 27.0 mmol/L (21-32); Calcium, Blood 9.6 mg/dL (8.5-10.1); Chloride, Blood 104.0 mmol/L (98-108); Creatinine, Blood 0.75 mg/dL (0.60-1.20); Glucose, Blood 126.0 mg/dL (70-99); Potassium, Blood 4.4 mmol/L (3.5-5.5); Sodium, Blood 134.0 mmol/L (136-145)
[2025-06-08 14:53] VITALS: BP 163/63
--- NOTE | 2025-06-08 17:58 | NUR ---
SHIFT SUMMARY A/OX3, CALLS APPROPRIATELY. USES URINAL AT BEDSIDE. STIFF/PAINFUL WITH TURNING, MEDICATED PER EMAR. INR DOWN TO 3.94. POSS D/C TO SNF TOMORROW. NO ACUTE CHANGES.
[2025-06-08 21:35] VITALS: BP 133/64
--- NOTE | 2025-06-09 04:05 | NUR ---
SHIFT SUMMARY PT ADMITTED FOR NONSURGICAL R HIP FX. ORIENTED TO SELF, PLACE, AND SITUATION. [place]. PT PLEASANT AND COOPERATIVE WITH CARE. PAIN MANAGED WELL PER EMAR. CONT PULSE OX IN PLACE SPO2 94% ON RA. PT USING URINAL INDEPENDENTLY. FOAM HEEL PROTECTORS IN PLACE. PT REFUSED MEPILEX TO BILATERAL HEELS. PLAN TO DISCHARGE TO SNF. PT RESTING IN BED, RESPIRATIONS EVEN AND UNLABORED. CALL LIGHT WITHIN REACH.
[2025-06-09 04:49] VITALS: BP 103/42
[2025-06-09 04:55] VITALS: BP 110/55
[2025-06-09 04:56] LABS: Prothrombin Time Results 27.2 Sec (9.7-11.5)
[2025-06-09 05:02] LABS: Anion Gap 8.0 mmol/L (3-11); Blood Urea Nitrogen 16.0 mg/dL (8-24); CO2, Blood 26.0 mmol/L (21-32); Calcium, Blood 9.1 mg/dL (8.5-10.1); Chloride, Blood 102.0 mmol/L (98-108); Creatinine, Blood 0.75 mg/dL (0.60-1.20); Glucose, Blood 112.0 mg/dL (70-99); Potassium, Blood 4.0 mmol/L (3.5-5.5); Sodium, Blood 132.0 mmol/L (136-145)
[2025-06-09 05:13] LABS: BASOPHILS ABSOLUTE AUTO 0.04 K/mm3 (0.00-0.23); BASOPHILS PERCENT AUTO 0 % (0-2); EOSINOPHILS ABSOLUTE AUTO 0.15 K/mm3 (0.00-0.68); EOSINOPHILS PERCENT AUTO 1 % (0-6); Hematocrit 33.5 % (37.0-53.0); Hemoglobin 11.3 g/dL (13.5-17.5); IMMATURE GRAN ABSOLUTE AUTO 0.05 K/mm3 (0.00-0.10); IMMATURE GRAN PERCENT AUTO 0 % (0-1); LYMPHOCYTES ABSOLUTE AUTO 1.62 K/mm3 (0.84-5.20); LYMPHOCYTES PERCENT AUTO 14 % (21-46); MONOCYTES ABSOLUTE AUTO 1.25 K/mm3 (0.16-1.47); MONOCYTES PERCENT AUTO 11 % (4-13); Mean Corpuscular HGB Conc 33.7 g/dL (31.5-36.5); Mean Corpuscular Volume 92 fL (80-100); NEUTROPHILS ABSOLUTE AUTO 8.66 K/mm3 (1.96-9.15); NEUTROPHILS PERCENT AUTO 74 % (41-73); NRBC ABSOLUTE 0.00 K/mm3 (0.00-0.02); NRBC Auto 0.0 /100 WBC (0.0-0.2); Platelet Count 200 K/mm3 (150-400); RDW Coefficient Variation 14.1 % (11.7-14.2); RDW Standard Deviation 47.6 fL (35.1-46.3)
[2025-06-09 07:09] VITALS: BP 111/97
[2025-06-09 13:58] VITALS: BP 99/50
[2025-06-09 19:47] VITALS: BP 122/69
--- NOTE | 2025-06-09 22:53 | NUR ---
UPDATE PT REQUESTING MEPILEX TO L HEEL BE REMOVED DUE TO SUDDEN ONSET OF BURNING SENSATION TO L HEEL. REMOVED MEPILEX AND FLOATED L HEEL. PT REPORTED RELIEF OF SYMPTOMS.
[2025-06-10 03:53] VITALS: BP 118/62
--- NOTE | 2025-06-10 04:27 | NUR ---
SHIFT SUMMARY PT A&O X4. [place]. PAIN MANAGED WELL PER EMAR. CONT PULSE OX IN PLACE, SPO2 93% ON RA. PT USING URINAL INDEPENDENTLY. FOAM HEEL PROTECTOR TO R HEEL, PT REFUSE HEEL PROTECTOR AND MEPILEX TO L HEEL. BLANCHABLE REDDENED AREA ON COCCYX NOTED, MEPILEX IN PLACE. PLAN TO DISCHARGE TO SNF. PT RESTING IN BED, RESPIRATIONS EVEN AND UNLABORED. CALL LIGHT WITHIN REACH.
[2025-06-10 05:59] LABS: BASOPHILS ABSOLUTE AUTO 0.05 K/mm3 (0.00-0.23); BASOPHILS PERCENT AUTO 1 % (0-2); EOSINOPHILS ABSOLUTE AUTO 0.24 K/mm3 (0.00-0.68); EOSINOPHILS PERCENT AUTO 3 % (0-6); Hematocrit 31.7 % (37.0-53.0); Hemoglobin 10.7 g/dL (13.5-17.5); IMMATURE GRAN ABSOLUTE AUTO 0.02 K/mm3 (0.00-0.10); IMMATURE GRAN PERCENT AUTO 0 % (0-1); LYMPHOCYTES ABSOLUTE AUTO 1.77 K/mm3 (0.84-5.20); LYMPHOCYTES PERCENT AUTO 19 % (21-46); MONOCYTES ABSOLUTE AUTO 1.04 K/mm3 (0.16-1.47); MONOCYTES PERCENT AUTO 11 % (4-13); Mean Corpuscular HGB Conc 33.8 g/dL (31.5-36.5); Mean Corpuscular Volume 92 fL (80-100); NEUTROPHILS ABSOLUTE AUTO 6.13 K/mm3 (1.96-9.15); NEUTROPHILS PERCENT AUTO 66 % (41-73); NRBC ABSOLUTE 0.00 K/mm3 (0.00-0.02); NRBC Auto 0.0 /100 WBC (0.0-0.2); Platelet Count 204 K/mm3 (150-400); RDW Coefficient Variation 14.0 % (11.7-14.2); RDW Standard Deviation 47.0 fL (35.1-46.3)
[2025-06-10 06:16] LABS: Prothrombin Time Results 19.8 Sec (9.7-11.5)
[2025-06-10 06:18] LABS: Anion Gap 6.0 mmol/L (3-11); Blood Urea Nitrogen 21.0 mg/dL (8-24); CO2, Blood 27.0 mmol/L (21-32); Calcium, Blood 8.5 mg/dL (8.5-10.1); Chloride, Blood 105.0 mmol/L (98-108); Creatinine, Blood 0.88 mg/dL (0.60-1.20); Glucose, Blood 106.0 mg/dL (70-99); Potassium, Blood 4.2 mmol/L (3.5-5.5); Sodium, Blood 134.0 mmol/L (136-145)
[2025-06-10 08:21] LABS: Ferritin, Serum 122.0 ng/mL (26-388); Total Iron Binding Capacity 258.0 ug/dL (250-450)
[2025-06-10 08:48] VITALS: BP 133/72
[2025-06-10] MEDS ORDERED: Sod Ferric Gluc Complx/Sucrose 125 MG in NS 100 ML IV SCH (09:00)
[2025-06-10 15:41] VITALS: BP 132/69
--- NOTE | 2025-06-10 16:38 | NUR ---
ATTEMPTED TO GIVE REPORT ON PT TO [facility]. NO ANSWER. PT DC'D ENROUTE TO [facility].
== END 2025-06-10 16:34 ==
LOC: ER 23:17 → SURS 23:18 → ER 06-07 03:32 → SURS 06-07 05:27 → ER 06-08 14:18 → SURS 06-08 14:18
PROVIDERS: Internal Medicine; Student in an Organized Health Care Education/Training Program; ADMIT Internal Medicine
DX: S72.111A Displaced fracture of greater trochanter of right femur, initial encounter for closed fracture (principal); M97.01XA Periprosthetic fracture around internal prosthetic right hip joint, initial encounter; W18.30XA Fall on same level, unspecified, initial encounter; I10 Essential (primary) hypertension; I48.0 Paroxysmal atrial fibrillation; E78.5 Hyperlipidemia, unspecified; K21.9 Gastro-esophageal reflux disease without esophagitis; D50.9 Iron deficiency anemia, unspecified; N40.0 Benign prostatic hyperplasia without lower urinary tract symptoms; R79.1 Abnormal coagulation profile; D72.829 Elevated white blood cell count, unspecified; F17.200 Nicotine dependence, unspecified, uncomplicated; Z66 Do not resuscitate; Z88.6 Allergy status to analgesic agent; Z79.01 Long term (current) use of anticoagulants; Z79.899 Other long term (current) drug therapy
CPT/HCPCS: 36415; 73502; 80048; 82607; 82728; 82746; 83540; 83550; 85025; 85610; 86850; 86900; 86901; 94762; 96365; 96374; 96375; 96376; 97110; 97163; 97166; 97530; 97530-CO; 97535-CO; 99285-25; A9270; G0378; J2270; J2916; J3010